=== PATIENT | female | born 1995 | race Two or more races ===

== ENCOUNTER 2024-07-08 08:45 | Inpatient (IN) | payer OTHER ==
[2024-07-08] MEDS: ELECTROLYTE-148 SOLN 1,000 ML IV SCH (10:15)
[2024-07-08] MEDS ORDERED: LACTATED RINGERS SOLUTION 1,000 ML/1,000 ML INFUS.BAG IV SCH (11:00)
[2024-07-08 11:11] VITALS: BMI 40.3
[2024-07-08 11:16] LABS: BASO % 0.3 % (0-2.0); EOS % 0.3 % (0-4.5); HEMATOCRIT 31.9 % (32.4-45.2); HEMOGLOBIN 10.4 GM/dL (10.7-15.3); LYMPH % 11.1 % (8-40); MCH 29.4 pg (25.7-33.7); MCHC 32.5 g/dl (32.0-36.0); MEAN CELL VOLUME 90.3 fl (80-96); MEAN PLT VOLUME 7.6 fl (7.5-11.1); MONO % 6.8 % (3.8-10.2); NEUT % 81.5 % (42.8-82.8); PLATELET COUNT 273 10^3/uL (134-434); RBC 3.53 M/mm3 (3.60-5.2); RDW 12.5 % (11.6-15.6); WHITE BLOOD COUNT 16.5 K/mm3 (4.0-10.0)
[2024-07-08 11:20] LABS: INR 0.95 (0.83-1.09); PROTHROMBIN TIME (PATIENT) 10.9 SEC (9.7-13.0)
[2024-07-08 11:23] LABS: ACTIVATED PTT 35.8 SECONDS (25.2-36.5)
[2024-07-08 11:29] LABS: CALCIUM 8.4 mg/dL (8.5-10.1)
[2024-07-08 11:30] LABS: BLOOD UREA NITROGEN 7.6 mg/dL (7-18)
[2024-07-08 11:33] LABS: CREATININE 0.5 mg/dL (0.55-1.3)
[2024-07-08] MEDS ORDERED: FENTANYL/BUPIVACAINE/NS/PF - PCEA - 50 ML DISP.SYRIN EP ONE ×2 (14:44→19:25)
[2024-07-08] MEDS ORDERED: FENTANYL CITRATE/PF 50 MCG/ML VIAL ONE (14:51)
[2024-07-08] MEDS ORDERED: BUPIVACAINE HCL/PF 0.25% (2.5MG/ML) 10 ML VIAL ONE (14:51)
[2024-07-08] MEDS: FENTANYL/BUPIVACAINE/NS/PF - PCEA - 50 ML DISP.SYRIN EP SCH (15:15)
[2024-07-08] MEDS ORDERED: NALOXONE HCL 0.4 MG/ML VIAL IVPUSH PRN (15:19)
[2024-07-08] MEDS ORDERED: LIDOCAINE HCL 1% PRESERVATIVE FREE - 30ML VIAL ONE (18:59)
[2024-07-08] MEDS ORDERED: OXYTOCIN 20 UNITS in 0.9% NS 20 UNIT/1,000 ML INFUS.BAG IV ONE ×2 (18:59→21:44)
[2024-07-08 21:00] LABS: CORD BASE EXCESS -9.6 mmol/L (0-2); CORD HCO3 16.5 mmHg (20-29); CORD PCO2 37.2 mmHg (30-78); CORD pH 7.266 (7.14-7.44)
[2024-07-08] MEDS ORDERED: oxyCODONE HCL 5 MG TABLET PO PRN (21:06)
[2024-07-08] MEDS ORDERED: BISACODYL 10 MG SUPP.RECT RC PRN (21:06)
[2024-07-08] MEDS ORDERED: BENZOCAINE 20% 57 GM BOTTLE TP PRN (21:06)
[2024-07-08] MEDS ORDERED: WITCH HAZEL 50% (TUCKS) 40 PAD/JAR PAD TP PRN (21:06)
[2024-07-08] MEDS ORDERED: METHYLERGONOVINE MALEATE 0.2 MG/1 ML AMP IM PRN (21:06)
[2024-07-08] MEDS ORDERED: BENZOCAINE 28 GM HEMORRHOIDAL OINTMENT TP PRN (21:06)
[2024-07-08] MEDS ORDERED: ACETAMINOPHEN 325 MG TABLET (FP) PO PRN (21:06)
[2024-07-08 21:12] LABS: CORD HCO3 17.5 mmHg (20-29); CORD PCO2 60.1 mmHg (30-78); CORD pH 7.082 (7.14-7.44)
[2024-07-08] MEDS ORDERED: OXYTOCIN 20 UNITS in 0.9% NS 20 UNIT/1,000 ML INFUS.BAG IV SCH (21:15)
[2024-07-08 23:38] VITALS: RESP 18
[2024-07-09 07:52] LABS: BASO % 0.2 % (0-2.0); EOS % 0.2 % (0-4.5); HEMATOCRIT 29.3 % (32.4-45.2); LYMPH % 14.1 % (8-40); MCH 30.3 pg (25.7-33.7); MCHC 33.9 g/dl (32.0-36.0); MEAN CELL VOLUME 89.3 fl (80-96); MEAN PLT VOLUME 7.8 fl (7.5-11.1); MONO % 7.1 % (3.8-10.2); NEUT % 78.4 % (42.8-82.8); PLATELET COUNT 237 10^3/uL (134-434); RBC 3.28 M/mm3 (3.60-5.2); RDW 12.7 % (11.6-15.6); WHITE BLOOD COUNT 15.2 K/mm3 (4.0-10.0)
[2024-07-09] MEDS: FERROUS SO4 325 MG TABLET (FP) PO SCH (10:15)
[2024-07-09] MEDS: PRENATAL VITAMINS W/ FOLIC ACID TABLET (FP) PO SCH (10:15)
[2024-07-09] MEDS: IBUPROFEN 600 MG TABLET (FP) PO PRN (19:15)
[2024-07-09] MEDS ORDERED: SENNOSIDES/DOCUSATE COMBO (SENNA PLUS) TABLET (UD) PO PRN (22:00)
[2024-07-10 11:21] VITALS: BP 105/74; PULSE 85; TEMP 97.6
== END 2024-07-10 17:47 | disposition home or self-care (01) | DRG 560 ==
LOC: JDEL 08:45 → JLDR 10:00 → J3W 23:03
PROVIDERS: ADMIT Obstetrics & Gynecology; ATTEND Obstetrics & Gynecology
PROC: 10E0XZZ Delivery of Products of Conception, External Approach (ICD-10-PCS; principal; 2024-07-08)
PROC: 0HQ9XZZ Repair Perineum Skin, External Approach (ICD-10-PCS; 2024-07-08)
DX: O70.0 First degree perineal laceration during delivery (principal); Z3A.39 39 weeks gestation of pregnancy; Z37.0 Single live birth
CPT/HCPCS: 36415; 36600; 59025; 59409; 80048; 82803; 85025; 85610; 85730; 86780; 86850; 86900; 86901